=== PATIENT | female | born 1980 | race Caucasian/White ===

== ENCOUNTER 2019-11-07 00:21 | Emergency (ER) | payer MEDICAID ==
[~2019-11-07] VITALS: Ht 157.5 cm; Wt 47.6 kg
[~2019-11-07 00:21] MED LIST: PRO20 PO
[2019-11-07 00:30] VITALS: BP_SYST 144
--- NOTE | 2019-11-07 00:30 | NUR ---
Patient to ER bed 05 to gown for evaluation. Side rails up. Report given to CARLA Kyle.
--- NOTE | 2019-11-07 00:32 | NUR ---
PT AAO AND AMBULATORY C/O RIGHT SIDE BREAST ABSCESS FOR THE PAST 6 DAYS.
--- NOTE | 2019-11-07 00:36 | NUR ---
ER at bedside examining patient.
[2019-11-07] MEDS ORDERED: SULFAMETHOXAZOLE/TRIMETHOPR DS 1 TABLET PO ONE (00:45)
[2019-11-07] MEDS ORDERED: IBUPROFEN 800 MG TABLET PO ONE (00:45)
--- NOTE | 2019-11-07 00:47 | NUR ---
Patient given written and verbal discharge instructions and verbalizes understanding. DR. TAMMIE TYLER MD discussed with patient the results and treatment provided. Patient in stable condition. ID arm band removed. Rx of BACTRIM, MOTRIN given. Patient educated on pain management and to follow up with PMD. Pain Scale 2/10. Opportunity for questions provided and answered. Medication side effect fact sheet provided.
== END 2019-11-07 00:48 | disposition home or self-care (01) ==
LOC: SED 00:21
DX: S20.161A Insect bite (nonvenomous) of breast, right breast, initial encounter (principal); N61.0 Mastitis without abscess; W57.XXXA Bitten or stung by nonvenomous insect and other nonvenomous arthropods, initial encounter; Y93.89 Activity, other specified; Y92.89 Other specified places as the place of occurrence of the external cause; Y99.8 Other external cause status
CPT/HCPCS: 99283

== ENCOUNTER 2020-03-17 01:41 | Emergency (ER) | payer MEDICAID, SELFPAY ==
[~2020-03-17] VITALS: Ht 157.5 cm; Wt 52.2 kg
[2020-03-17 01:55] VITALS: BP_SYST 153
--- NOTE | 2020-03-17 01:55 | NUR ---
Patient triaged in the tent and placed in the tent. VSS and patient appears in no acute distress at this time. Awaiting available bed, and MD notified of need for MSE.
--- NOTE | 2020-03-17 01:57 | NUR ---
Pt presents to ER c/o bodyaches and sore throat x today. Denies any sick contacts and CP. Pt able to speak full sentences. O2 saturation at 98 percent. Denies allergies.
--- NOTE | 2020-03-17 02:15 | NUR ---
COVID AND FLU SWAB SENT TO LAB
[2020-03-17 03:44] VITALS: BP_SYST 136
--- NOTE | 2020-03-17 03:44 | NUR ---
Patient given written and verbal discharge instructions and verbalizes understanding. ER MD discussed with patient the results and treatment provided. Patient in stable condition. ID arm band removed. Patient educated on pain management and to follow up with PMD. Opportunity for questions provided and answered. Medication side effect fact sheet provided.
== END 2020-03-17 03:44 | disposition home or self-care (01) ==
LOC: SED 01:41
DX: J11.1 Influenza due to unidentified influenza virus with other respiratory manifestations (principal); Z20.828 Contact with and (suspected) exposure to other viral communicable diseases
CPT/HCPCS: 99281